=== PATIENT | female | born 1975 | race Caucasian/White ===

== ENCOUNTER 2017-10-31 19:59 | Emergency (ER) | payer MEDICAID ==
[~2017-10-31] VITALS: Ht 157.5 cm; Wt 86.0 kg
[2017-10-31] MEDS: IBUPROFEN 800 MG TABLET PO ONE ×2 (20:59→21:06)
[2017-10-31] MEDS ORDERED: GENTAMICIN SULFATE 0.3% OPHTHALMIC SOLUTION 5 ML OU ONE (21:00)
[2017-10-31] MEDS ORDERED: ACETAMINOPHEN 325 MG TABLET PO ONE (21:15)
[2017-10-31] MEDS ORDERED: ACETAMINOPHEN 160 MG/5 ML SUSPENSION UDCUP PO ONE ×2 (21:15→21:30)
[2017-10-31] MEDS ORDERED: IBUPROFEN 100 MG/5 ML SUSPENSION UDCUP PO ONE (21:30)
[2017-10-31] MEDS ORDERED: ACETAMINOPHEN 650 MG/20.3 ML SOLUTION UDCUP PO ONE (21:30)
[2017-10-31] MEDS ORDERED: DEXAMETHASONE SOD PHOS 4 MG/ML 5 ML VIAL IM ONE (22:15)
[2017-10-31] MEDS ORDERED: PENICILLIN G BENZATHINE LA 1,200,000 UNITS/2 ML SYRINGE IM ONE (22:15)
[2017-10-31 23:08] VITALS: BP 131/83
== END 2017-10-31 23:51 | disposition home or self-care (01) ==
LOC: EMS 20:01
DX: H10.89 Other conjunctivitis (principal); B99.9 Unspecified infectious disease; J02.0 Streptococcal pharyngitis; H92.09 Otalgia, unspecified ear
CPT/HCPCS: 87430; 96372; 99284; J0561; J1100